=== PATIENT | female | born 1980 | race Hispanic/Latino ===

== ENCOUNTER 2017-11-08 07:15 | Emergency (ER) | payer OTHER ==
[2017-11-08] MEDS ORDERED: Iopamidol 370 76% 50 ML VIAL FS ONE (07:37)
[2017-11-08] MEDS ORDERED: ISOVUE-370 76%-LOCM 1 ML ONE (07:37)
[2017-11-08 08:31] LABS: #Eosinphils 0.1 thou/uL (0.0-0.7); #Lymphocytes 1.4 thou/uL (1.20-3.40); #Monocytes 0.7 thou/uL (0.11-0.59); #Neutrophils 7.7 thou/uL (1.40-6.50); %Basophils 0.2 % (0.0-1.0); %Eosinophils 0.8 % (0.0-10.0); %Monocytes 6.9 % (0.0-10.0); %Neutrophils 78.2 % (42.0-75.0); Hemoglobin 15.7 g/dL (12.0-16.0); Mean Corpuscular HGB CONC 33.6 g/dL (32.0-36.0); Mean Corpuscular Volume 89.2 fL (78.0-98.0); Platelet Count 452 thou/uL (130-400); RBC Distribution Width 11.7 % (11.5-14.5); Red Blood Cell (RBC) Count 5.22 mill/uL (4.20-5.40); White Blood Cell (WBC) Count 9.8 thou/uL (4.8-10.8)
[2017-11-08 08:46] LABS: ALT (SGPT) 82 U/L (8-55); AST (SGOT) 197 U/L (5-34); Albumin 4.3 g/dL (3.5-5.0); Alkaline Phosphatase 237 U/L (40-150); Anion Gap 15 mmol/L (10-20); BUN (Urea Nitrogen) 19 mg/dL (7.0-18.7); Bilirubin, Total 0.8 mg/dL (0.2-1.2); Calc. Creatinine Clearance 0 mL/min (70-130); Calcium 9.7 mg/dL (7.8-10.44); Carbon Dioxide 25 mmol/L (22-29); Chloride 103 mmol/L (98-107); Estimated GFR-MDRD 86; Globulin 3.6 g/dL (2.4-3.5); Glucose 96 mg/dL (70-105); Lipase 36 U/L (8-78); Potassium 3.5 mmol/L (3.5-5.1); Protein, Total 7.9 g/dL (6.0-8.3); Sodium 139 mmol/L (136-145)
[2017-11-08] MEDS ORDERED: Ondansetron HCl/PF 4 MG/2 ML Vial ONE (08:53)
[2017-11-08] MEDS ORDERED: metroNIDAZOLE 500 MG in Premix Bag 1 BAG IVPB SCH (09:15)
[2017-11-08 09:50] LABS: HBCM Index 0.07 S/CO (0-0.79); Hep A IgM AB Non-Reactive (NonReactive); Hep A IgM S/CO 0.16 S/CO (0-0.79); Hep B Surf Ag Non-Reactive S/CO (NonReactive); Hep C IgG Ab Non-Reactive (NonReactive); Hep C Index 0.15 S/CO (0-0.79); Hepatitis B Core IGM Abs Non-Reactive (NonReactive)
[2017-11-08 09:54] LABS: BHCG - Serum Negative (NEGATIVE); Pregs Control Background? CLEAR/WHITE (CLR/WHITE); Pregs Control Bar Appear? YES (CONTROL BAR)
--- NOTE | 2017-11-08 10:53 | CT ---
ABDOMEN AND PELVIC CT SCAN WITH IV CONTRAST: HISTORY: A 37-year-old female with a history of upper abdominal pain with nausea, vomiting, and diarrhea. FINDINGS: Visualized lung zones are clear of acute process. Status post cholecystectomy with some mild dilatat ion of the common duct and central intrahepatic ducts. The pancreas, spleen, and adrenal glands are unremarkable. No renal calculi or acute obstruction. There are several minimally dilated jejunal bowel loops in the left upper quadrant, nonspecific, possibly mild jejunitis/enteritis. No evidence for obstruction. No CT evidence for acute appendicitis. Unremarkable-appearing uterus and adnexal regions. IMPRESSION: Several minimally dilated loops of small bowel in the left upper quadrant, representing jejunum, poss ibly some jejunitis/enteritis. No renal calculus or obstruction. No CT evidence for acute append icitis. No evidence for other significant acute process. POS: [facility]
== END 2017-11-08 12:04 | disposition home or self-care (01) ==
LOC: ERS 07:15
DX: K52.9 Noninfective gastroenteritis and colitis, unspecified (principal)
CPT/HCPCS: 74177; 80053; 80074; 83690; 84703; 85025; 96361; 96365; 96366; 96367; 96375; J0744; J2405

== ENCOUNTER 2018-09-26 19:26 | Emergency (ER) | payer OTHER ==
[2018-09-26] MEDS ORDERED: Adacel (T-DAP) 0.5 ML SYRINGE ONE (21:46)
--- NOTE | 2018-09-26 21:51 | RAD ---
Left foot 3 views HISTORY: Left foot and toe injury. FINDINGS: Lisfranc joint alignment is anatomic. Pes planus on the lateral view. No acute fracture, di slocation, or radiopaque foreign bodies are apparent. IMPRESSION: No acute osseous abnormalities are demonstrated.
[2018-09-26] MEDS ORDERED: Lidocaine 1% PF 5 ML VIAL ONE (22:02)
[2018-09-26] MEDS ORDERED: Ondansetron ODT 4 MG TAB ONE (22:02)
== END 2018-09-26 22:42 | disposition home or self-care (01) ==
LOC: ERS 19:26
DX: S91.115A Laceration without foreign body of left lesser toe(s) without damage to nail, initial encounter (principal); F32.9 Major depressive disorder, single episode, unspecified; W26.8XXA Contact with other sharp object(s), not elsewhere classified, initial encounter
CPT/HCPCS: 12001; 90471; 90715; J2001; Q0162

== ENCOUNTER 2020-03-14 09:02 | Outpatient (CLI) | payer OTHER ==
--- NOTE | 2020-03-14 13:14 | MMO ---
Bilateral MAMMO Bilat Screen [facility]. CLINICAL HISTORY: Patient is 40 years old and is seen for screening. The patient has no family history of breast cancer. The patient has no personal history of cancer. VIEWS: The views performed were: bilateral craniocaudal with tomosynthesis and bilateral mediolateral oblique with tomosynthesis. FILMS COMPARED: The present examination has been compared to a prior imaging study performed at [facility] on 08/10/2018. This study has been interpreted with the assistance of computer-aided detection. MAMMOGRAM FINDINGS: There are scattered fibroglandular densities. Benign calcifications are noted bilaterally. There are no suspicious masses, suspicious calcifications, or new areas of architectural distortion. IMPRESSION: THERE IS NO MAMMOGRAPHIC EVIDENCE OF MALIGNANCY. A ROUTINE FOLLOW-UP MAMMOGRAM IN 1 YEAR IS RECOMMENDED. THE RESULTS OF THIS EXAM WERE SENT TO THE PATIENT. ACR BI-RADS Category 2 - Benign finding MAMMOGRAPHY NOTE: 1. A negative mammogram report should not delay a biopsy if a dominant of clinically suspicious mass is present. 2. Approximately 10% to 15% of breast cancers are not detected by mammography. 3. Adenosis and dense breasts may obscure an underlying neoplasm. Reported by: ANN ROSSI MD Electonically Signed: [id number]
== END 2020-03-14 09:03 | disposition home or self-care (01) ==
LOC: BICMAMMO 09:02
PROVIDERS: ATTEND Family Medicine
DX: Z12.31 Encounter for screening mammogram for malignant neoplasm of breast (principal)
CPT/HCPCS: 77063; 77067

== ENCOUNTER 2023-03-31 14:34 | Outpatient (CLI) | payer OTHER | END 2023-03-31 14:35 | disposition home or self-care (01) | LOC: BICMAMMO 14:34 | PROVIDERS: ATTEND Family Medicine | DX: Z12.31 Encounter for screening mammogram for malignant neoplasm of breast (principal) | CPT/HCPCS: 77067 ==

== ENCOUNTER 2024-03-11 07:35 | Outpatient (CLI) | payer OTHER | END 2024-03-11 07:36 | disposition home or self-care (01) | LOC: ULT 07:35 | PROVIDERS: ATTEND Family Medicine | DX: R10.84 Generalized abdominal pain (principal); R10.2 Pelvic and perineal pain; R79.89 Other specified abnormal findings of blood chemistry; K76.0 Fatty (change of) liver, not elsewhere classified; D21.9 Benign neoplasm of connective and other soft tissue, unspecified | CPT/HCPCS: 76700; 76856 ==